=== PATIENT | male | born 1955 | race American Indian/Alaskan Native ===

== ENCOUNTER 2017-07-08 14:22 | Emergency (ER) | payer OTHER ==
[2017-07-08] MEDS ORDERED: SODIUM CHLORIDE FLUSH 10ML SYR IVF ONE (15:00)
[2017-07-08] MEDS ORDERED: SODIUM CHLORIDE 0.9% 1,000ML IVBOLUS ONE (15:00)
[2017-07-08 15:04] LABS: HEMATOCRIT 48.5 % (39.2-51.8); HEMOGLOBIN 16.2 g/dL (13.7-18.0); WHITE BLOOD COUNT 12.4 x10^3/uL (3.4-10)
[2017-07-08 15:15] LABS: ASPARTATE AMINO TRANSFERASE 21 U/L (15-37); BLOOD UREA NITROGEN 14 mg/dL (7-18)
[2017-07-08] MEDS ORDERED: ONDANSETRON 2MG/ML, 2ML ONE (15:21)
[2017-07-08] MEDS ORDERED: HYDROmorphone 2 MG/ML, 1ML ONE ×3 (15:21→18:43)
[2017-07-08] MEDS ORDERED: HYDROmorphone 1 MG/ML, 1ML IV ONE ×2 (15:30→16:00)
[2017-07-08] MEDS ORDERED: ONDANSETRON 2MG/ML, 2ML IVPush ONE (15:30)
[2017-07-08] MEDS ORDERED: KETOROLAC 30 MG/1 ML ONE (18:21)
[2017-07-08 18:24] VITALS: BP 158/89
[2017-07-08] MEDS ORDERED: KETOROLAC 30 MG/1 ML IVPush ONE (18:30)
[2017-07-09] MEDS ORDERED: OMNIPAQUE 350 MG/ML, 100ML BOTTLE ONE (05:53)
== END 2017-07-08 20:10 | disposition home or self-care (01) ==
LOC: ED 16:49
DX: N13.2 Hydronephrosis with renal and ureteral calculous obstruction (principal); Z87.11 Personal history of peptic ulcer disease
CPT/HCPCS: 36415; 74022; 74177; 80053; 81001; 83690; 85025; 96361; 96374; 96375; 96376; 99285; J1170; J1885; J2405; J7030; Q9967

== ENCOUNTER 2017-07-20 11:36 | Day surgery (SDC) | payer OTHER ==
[~2017-07-20] VITALS: Ht 180.3 cm; Wt 132.3 kg
[2017-07-20] MEDS ORDERED: LACTATED RINGERS 1,000 ML IV SCH (12:11)
[2017-07-20] MEDS ORDERED: OXYC-307 PO (12:14)
[2017-07-20 12:19] VITALS: BP 183/119
[2017-07-20] MEDS ORDERED: MIDAZOLAM 1 MG/ML, 2ML ONE (13:37)
[2017-07-20] MEDS ORDERED: FENTANYL PF 250 MCG/5ML ONE (13:37)
[2017-07-20] MEDS ORDERED: ONDANSETRON 2MG/ML, 2ML ONE (14:19)
[2017-07-20] MEDS ORDERED: DEXAMETHASONE 4 MG/ML, 1ML ONE (14:19)
[2017-07-20] MEDS ORDERED: PROPOFOL 10 MG/ML, 20ML ONE (14:19)
[2017-07-20] MEDS ORDERED: CEFAZOLIN 1,000 MG ONE (14:19)
[2017-07-20] MEDS ORDERED: FENTANYL PF 100 MCG/2ML ONE (14:29)
[2017-07-20] MEDS ORDERED: OXYcodone 5 MG/5 ML ORAL.SOL UDC ONE (15:44)
[2017-07-20] MEDS ORDERED: OXYcodone 5 MG/5 ML ORAL.SOL UDC PO PRN (16:00)
== END 2017-07-20 17:00 ==
LOC: OUT 11:36
PROVIDERS: ATTEND Urology
DX: N20.2 Calculus of kidney with calculus of ureter (principal); K21.9 Gastro-esophageal reflux disease without esophagitis; E66.9 Obesity, unspecified; Z68.41 Body mass index [BMI] 40.0-44.9, adult; Z98.890 Other specified postprocedural states
CPT/HCPCS: 52356; 74000; 76000; 93005; C1758; C1769; C2617; J0690; J1100; J2250; J2405; J2704; J3010; J7120

== ENCOUNTER → 2017-09-12 | Outpatient (CLI) | payer OTHER ==
[~2017-09-12] MED LIST: OXYC-307 PO
== END | disposition home or self-care (01) ==
LOC: CFH 09:00
PROVIDERS: ATTEND Urology
DX: Z02.9 Encounter for administrative examinations, unspecified (principal)
CPT/HCPCS: 74018

== ENCOUNTER 2021-04-14 11:16 | Outpatient (CLI) | payer MEDICARE ==
[~2021-04-14 11:16] MED LIST changes: -OXYC-307 PO; +OXYC-501 PO
== END 2021-04-14 23:59 | disposition home or self-care (01) ==
LOC: CFH 11:16
PROVIDERS: ATTEND Family Medicine
DX: R22.42 Localized swelling, mass and lump, left lower limb (principal)